=== PATIENT | male | born 1955 | race African-American/Black ===

== ENCOUNTER 2016-07-29 21:41 | Emergency (ER) | payer MEDICAID ==
[~2016-07-29] VITALS: Ht 182.9 cm; Wt 99.8 kg
[2016-07-29] MEDS ORDERED: LIDOCAINE 1% HCL (LOCAL ANESTH.) INJ 20ML MDV ONE (21:51)
[2016-07-29] MEDS ORDERED: ACETAMINOPHEN 325 MG TAB PO ONE (22:15)
[2016-07-29] MEDS ORDERED: GABAPENTIN 100 MG CAP PO ONE (22:15)
[2016-07-29] MEDS: metFORMIN HYDROCHLORIDE 500 MG TAB PO ONE (22:20)
[2016-07-30] MEDS: metFORMIN HYDROCHLORIDE 500 MG TAB PO ONE (00:13)
[2016-07-30] MEDS ORDERED: SUCCINYLCHOLINE CHLORIDE 20 MG/ML 10ML VIAL IV ONE (01:04)
[2016-07-30] MEDS ORDERED: ETOMIDATE (2MG/ML) 20ML VIAL IV ONE (01:04)
[2016-07-30] MEDS ORDERED: MIDAZOLAM DRIP 100 mg/100mL NS 100 ML IV ONE (01:25)
[2016-07-30] MEDS ORDERED: BANANA BAG KIT 1 EA IV ONE (01:38)
[2016-07-30] MEDS ORDERED: PROPOFOL 100 ML IV ONE (01:38)
[2016-07-30] MEDS ORDERED: cefTRIAXone 1GM/50ML D5W 50 ML IV ONE ×2 (01:45)
[2016-07-30 01:47] LABS: Basophils # (auto) 0.1 uL; Basophils % (auto) 0.8 % (0.0-2.0); Eosinophils # (auto) 0 uL; Eosinophils % (auto) 0.1 % (0.0-7.0); Hematocrit 42.9 % (41.0-53.0); Hemoglobin 14.1 g/dL (13.5-17.5); Lymphocytes # (auto) 1.9 uL; Lymphocytes % (auto) 29.1 % (10.0-50.0); Mean Corpuscular Hemoglobin 30.6 pg (28.0-32.0); Mean Corpuscular Volume 92.9 fL (80.0-100.0); Mean Platelet Volume 9.3 fL (7.4-10.4); Monocytes # (auto) 0.3 uL; Monocytes % (auto) 5.4 % (0.0-12.0); Neutrophils # (auto) 4.1 uL; Neutrophils % (auto) 64.6 % (37.0-80.0); Platelet Count (auto) 184 10^3/uL (140-450); Red Cell Distribution Width 13.6 % (11.6-16.0); White Blood Cell 6.4 10^3/uL (4.4-10.8)
[2016-07-30] MEDS ORDERED: METF-316 PO (01:55)
[2016-07-30] MEDS ORDERED: MIDAZOLAM DRIP 100 mg/100mL NS 100 ML IV SCH (02:00)
[2016-07-30] MEDS ORDERED: PROPOFOL 100 ML IV SCH (02:00)
[2016-07-30 02:03] LABS: INR 1.09 (0.9-1.15); Partial Thromboplastin Time 24.7 sec (22.64-33.71); Prothrombin Time 11.2 sec (9.37-12.3)
[2016-07-30 02:15] VITALS: BP 120/72
[2016-07-30 02:19] LABS: Albumin 3.5 g/dL (3.4-5.0); Calcium 8.1 mg/dL (8.5-10.1); Potassium 3.6 mmol/L (3.5-5.1)
[2016-07-30 02:21] LABS: Bilirubin, Total 0.5 mg/dL (0.2-1.0); Total Protein 7.9 g/dL (6.4-8.2)
[2016-07-30 02:31] LABS: Urine RBC None Seen /hpf (0 - 3)
[2016-07-30 02:55] LABS: Urine Bilirubin Negative (Negative); Urine Blood Negative /uL (Negative); Urine Color Yellow (Yellow); Urine Glucose Normal (Normal); Urine Ketone Negative (Negative); Urine Nitrite Negative (Negative); Urine Squamous Epithelial Cell FEW /hpf (<5); Urine pH 5.5 (5.0-8.0)
== END 2016-07-30 03:39 | disposition short-term general hospital (02) ==
LOC: ER 21:43
DX: S02.413A LeFort III fracture, initial encounter for closed fracture (principal); S01.511A Laceration without foreign body of lip, initial encounter; E11.9 Type 2 diabetes mellitus without complications; F17.210 Nicotine dependence, cigarettes, uncomplicated; F10.129 Alcohol abuse with intoxication, unspecified; Y90.9 Presence of alcohol in blood, level not specified; M54.5 Low back pain; Z88.0 Allergy status to penicillin; Z02.89 Encounter for other administrative examinations; Y04.0XXA Assault by unarmed brawl or fight, initial encounter; Y93.89 Activity, other specified; Y99.8 Other external cause status; Y92.89 Other specified places as the place of occurrence of the external cause
CPT/HCPCS: 12011; 31500; 36415; 51702; 70450; 70486; 71010; 72100; 72125; 80053; 80320; 81001; 82962; 85025; 85610; 85730; 94002; 96365; 99285; G0434; J0330; J0696; J2001; J2704; J3411; J3475